=== PATIENT | male | born 2000 | race Caucasian/White ===

== ENCOUNTER 2024-05-23 11:34 | Emergency (ER) | payer MEDICAID ==
[~2024-05-23] VITALS: Ht 170.2 cm; Wt 61.4 kg
[2024-05-23 11:39] VITALS: BP 110/72; PULSE 74; O2SAT 100
[2024-05-23] MEDS ORDERED: AZIT-164 PO (12:49)
[2024-05-23] MEDS: dexamethasone sod phosphate 10mg/ml inj PO STA (13:01)
[2024-05-23 13:14] VITALS: RESP 16; TEMP 97.4
== END 2024-05-23 13:15 | disposition home or self-care (01) ==
LOC: ER 11:35
DX: J20.9 Acute bronchitis, unspecified (principal)
CPT/HCPCS: 99283; J1100